=== PATIENT | female | born 1985 | race Caucasian/White ===

== ENCOUNTER 2016-07-04 06:13 | Inpatient (IN) | payer MEDICAID ==
[2016-07-04] MEDS ORDERED: RINGERS SOLUTION,LACTATED 1,000 ML IV ONE (06:24)
[2016-07-04] MEDS ORDERED: RINGERS SOLUTION,LACTATED 1,000 ML IV PRN (06:24)
[2016-07-04] MEDS ORDERED: MISOPROSTOL 0.2 MG TABLET ONE (06:37)
[2016-07-04] MEDS ORDERED: LIDOCAINE 1% INJ-PF (10 MG/ML) 30 ML SDV ONE (06:37)
[2016-07-04] MEDS ORDERED: OXYTOCIN/NORMAL SALINE 20 UNIT/1,000 ML RTUINJ ONE (06:37)
[2016-07-04 06:39] LABS: APPEARANCE,URINE CLOUDY; BILIRUBIN,URINE NEGATIVE (NEGATIVE); GLUCOSE, URINE NEGATIVE (NEGATIVE); KETONES,URINE NEGATIVE (NEGATIVE); LEUKOCYTE ESTERASE,URINE TRACE (NEGATIVE); NITRITE,URINE NEGATIVE (NEGATIVE); PROTEIN,URINE 30 mg/dL (NEGATIVE); URINE SPECIFIC GRAVITY 1.015; UROBILINOGEN,URINE NEGATIVE mg/dL (<2.0)
[2016-07-04 06:51] LABS: ABSOLUTE BASOPHILS # (AUTO) 0.1 10^3/uL (0.0-0.2); ABSOLUTE EOSINOPHILS # (AUTO) 0.2 10^3/uL (0.0-0.6); ABSOLUTE LYMPHOCYTES (AUTO) 2.1 10^3/uL (0.5-4.7); ABSOLUTE NEUT (AUTO) 8.3 10^3/uL (1.7-8.2); EOSINOPHILS % (AUTO) 1.8 % (0-6); HEMATOCRIT 37.4 % (36.0-47.0); HEMOGLOBIN 12.5 g/dL (12.0-15.5); HGB HCT DIFFERENCE 0.1; LYMPHOCYTES % (AUTO) 17.8 % (13-45); MEAN CORPUSCULAR HEMOGLOBIN 27.9 pg (27.0-33.4); MEAN CORPUSCULAR HGB CONC 33.4 g/dL (32.0-36.0); MEAN CORPUSCULAR VOLUME 84 fl (80-97); MONOCYTES % (AUTO) 8.7 % (3-13); RED BLOOD COUNT 4.48 10^6/uL (3.72-5.28); RED CELL DISTRIBUTION WIDTH 14.6 % (11.5-14.0); SEGMENTED NEUTROPHILS % (AUTO) 70.7 % (42-78); WHITE BLOOD COUNT 11.8 10^3/uL (4.0-10.5)
[2016-07-04 06:56] LABS: URINE BARBITURATES SCREEN NEGATIVE; URINE METHADONE SCREEN NEGATIVE; URINE OPIATES LOW NEGATIVE; URINE PHENCYCLIDINE SCREEN NEGATIVE
[2016-07-04] MEDS ORDERED: DIPH/PERTUSS(ACELL)/TETANUS VAC/PF 0.5 ML SYR (>=10YO) IM PRN (07:01)
[2016-07-04] MEDS ORDERED: BENZOCAINE/MENTHOL AEROSOL SPRAY 56 ML TOP PRN (07:01)
[2016-07-04] MEDS ORDERED: ZOLPIDEM TARTRATE 5 MG TABLET PO PRN (07:01)
[2016-07-04] MEDS ORDERED: OXYTOCIN/NORMAL SALINE 1,000 ML IV PRN (07:01)
[2016-07-04] MEDS ORDERED: ACETAMINOPHEN WITH CODEINE #3 TABLET PO PRN ×2 (07:01)
[2016-07-04] MEDS ORDERED: DIBUCAINE 1% OINTMENT 28 GM TP PRN (07:01)
[2016-07-04] MEDS ORDERED: MEASLES,MUMPS&RUBELLA VACC/PF 0.5 ML VIAL SUBCUT PRN (07:01)
--- NOTE | 2016-07-04 08:00 | L&D Flow Sheet ---
LD Flowsheet Datetime Report Generated by CPN: 07/04/2016 08:00 Datetime: 07/04/2016 07:44 NBP Sys/Naomi/Mean (mmHg): 107 (QS system process) : 57 (QS system process) : 77 (QS system process) Pulse: 69 (QS system process) Datetime: 07/04/2016 07:30 Respirations: 16 (Rolando Kent, RN) Temperature (F): 97.8 (Rolando Guofleet, RN) Temperature (C): 36.6 (QS system process) Pain Presence: None/Denies (Rolando Heidy, RN) Datetime: 07/04/2016 07:29 NBP Sys/Naomi/Mean (mmHg): 108 (QS system process) : 67 (QS system process) : 80 (QS system process) Pulse: 75 (QS system process) Datetime: 07/04/2016 07:14 NBP Sys/Naomi/Mean (mmHg): 111 (QS system process) : 73 (QS system process) : 88 (QS system process) Pulse: 71 (QS system process) Datetime: 07/04/2016 07:00 Vital Signs Stage of : Recovery (Crystal Blacksburg, RN) Pain Pain Scale: 3 (Crystal Blacksburg, RN) Pain Presence: Constant (Melba Acevesergrass, RN) Pain Type: Sharp; Contraction; Stabbing; Pressure (Crystal Scarlett, RN) Pain Location: Abdomen; Perineum (Crystal Blacksburg, RN) Pain Goal: 1 (Crystal Scarlett, RN) Pain Relief Measures: Comfort Measures (Crystal Blacksburg, RN) Datetime: 07/04/2016 06:52 NBP Sys/Naomi/Mean (mmHg): 100 (QS system process) : 66 (QS system process) : 77 (QS system process) Pulse: 74 (QS system process) Datetime: 07/04/2016 06:46 Uterine Activity Monitor Mode: External; Palpation (Ivanna Lattibeaudeir, RN) Frequency (min): 1-2 (Ivanna Lattibeaudeir, RN) Quality: Moderate to Strong (Ivanna Lattibeaudeir, RN) Duration (sec): 70-110 (Ivanna Lattibeaudeir, RN) Resting Tone (Palpate): Relaxed (Ivanna Lattibeaudeir, RN) Assessment A Monitor Mode: External US (Ivanna Lattibeaudeir, RN) FHR Baseline Rate : 135 (Ivanna Lattibeaudeir, RN) Variability: Moderate 6-25 bpm (Ivanna Lattibeaudeir, RN) Accelerations: 10X10 (Ivanna Lattibeaudeir, RN) Stage 2 Stage 2 Comments: of viable female . (Ivanna Lattibeaudeir, RN) Datetime: 07/04/2016 06:34 Vaginal Exam Dilatation (cm): 10.0 (Melba Pantoja, AMARI) Effacement (%): 100 (Melba Pantoja RN) Station: 1 (Mleba Pantoja RN) Exam by: Danitza Pantoja RN (Melba Pantoja RN) Communication Communication: RN at Bedside; RN Reviewed Strip; Call/Page Placed to Provider (Melba Pantoja RN) Provider Notified (Name): Notified Dr. Escobar of pt pushing (Melba Pantoja RN) Datetime: 07/04/2016 06:31 Membranes Ruptured Date/Time: 07/04/2016 05:00 (Melba Pantoja RN) Membranes Rupture Method: Spontaneous (Melba Pantoja RN) Amniotic Fluid Color: Clear (Crystal Blacksburg, RN) Amniotic Fluid Amount: Small (Crystal Blacksburg, RN) Amniotic Fluid Odor: Normal (Ivanna Vicente, RN) Datetime: 07/04/2016 06:30 Uterine Activity Monitor Mode: Palpation (Ivanna Morantibeaudeir, RN) Quality: Moderate to Strong (Ivanna Vicente, RN) Resting Tone (Palpate): Relaxed (Ivanna Lattibeacaryir, RN) Contraction Comments: unable to determine (Ivanna Morantibeaudeir, RN) Assessment A Monitor Mode: External US (Ivanna Lattibeaudeir, RN) FHR Baseline Rate : 135 (Ivanna Lattibeaudeir, RN) Variability: Moderate 6-25 bpm (Ivanna Lattibeaudeir, RN) Accelerations: 10X10 (Ivanna Lattibeaudeir, RN) Datetime: 07/04/2016 06:20 Vaginal Exam Dilatation (cm): 6.5 (Melba Pantoja RN) Effacement (%): 90 (Melba Pantoja, RN) Station: -1 (Melba Pantoja, RN) Exam by: Danitza Pantoja RN (Melba Pantoja, RN) Vaginal Bleeding: None (Melba Pantoja RN) Cervix, Consistency: Soft (Melba Acevesergrass, RN) Cervix, Position: Anterior (Crystal Blacksburg, RN) Datetime: 07/04/2016 06:13 Frequency (min): Reported contractions every minute (Crystal Scarlett, RN) Pain Pain Scale: 5 (Crystal Scarlett, RN) Pain Presence: Constant (Crystal Scarlett, RN) Pain Type: Contraction (Crystal Scarlett, RN) Pain Location: Abdomen; Perineum (Crystal Scarlett, RN) Pain Goal: 1 (Crystal Scarlett, RN) Pain Relief Measures: Comfort Measures (Crystal Scarlett, RN) Pain Coping: Requesting Pain Medication or Epidural; Crying (Crystal Blacksburg, RN) Vaginal Bleeding: None (Crystal Scarlett, RN) Maternal Assessment Level of Consciousness: Fully Conscious (Melba Pantoja RN)
--- NOTE | 2016-07-04 08:57 | Admission Physical ---
Datetime Report Generated by CPN: 07/04/2016 08:56 CURRENT ADMISSION Chief Complaint: Uterine Contractions; Suspected Ruptured Membranes Indication for Induction: Not Applicable Admit Plan: Admit to Unit; Initiate Labor Protocol ALLERGIES Medication Allergies: No Medication Allergies: No Known Allergies (07/04/2016) Latex: No Latex Allergies OBSTETRICAL HISTORY EDC: 07/05/2016 00:00 : 6 Para: 3 SAB: 1 IAB: 1 Livin Gestational Diabetes: No Rh Sensitization: No Incompetent Cervix: No ROXANNE: No Infertility: No ART Treatment: No Uterine Anomaly: No IUGR: No Hx Previous C/S: No Macrosomia: No Hx Loss/Stillborn: No PIH: No Hx : No Placenta Previa/Abruption: No Depression/PP Depression: No PTL/PROM: No Post Hemorrhage: No Current Procedures: Ultrasound; NST Obstetrical History Comments: G1 05/07/2000 40W 7.2# F CA G2 04/2001 10-12 wks SAB D_C G3 01/20/2003 40W 8.0# F Epidural CA G4 02/2009 6wk EAB G5 12/29/2009 40.5W 8.6# F Epidural NHCL G6 Current SEE RECORDS Alcohol: No Marijuana : No Cocaine: No Other Illicit Drugs: No Cigarettes: Former Smoker. 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 INFECTIOUS HISTORY Gonorrhea: No Genital Herpes: Yes Chlamydia: No Tuberculosis: No Syphilis: No Hepatitis: No HIV/AIDS Exposure: No Rash or Viral Illness: No HPV: No Infectious History Comments: LEEP 2000 PHYSICAL EXAM General: Normal HEENT: Normal Neurologic: Normal Thyroid: Normal Heart: Normal Lungs: Normal Breast: Normal Back: Normal Abdomen: Normal Genitourinary Exam: Normal Extremities: Normal DTRs: Normal Pelvic Type: Adequate Vital Signs: Reviewed VAGINAL EXAM Dilatation: 10 Effacement: 100 Station: 3 MEMBRANES Pooling: Positive FETUS A EGA: 39.6 Monitoring: External US FHR- Baseline: 130 Variability: Moderate 6-25bpm Accelerations: 15X15 Decelerations: Early FHR Category: Category II Estimated Weight (gm): 4000 Presentation: Vertex Admit Comment: delivered soon after arrival to floor PLANS FOR LABOR AND DELIVERY Labor and Delivery: None Pain Management: Natural Feeding Preference: Breast Benefit of Breast Feed Discussed: Yes Circumcision: N/A INFORMED CONSENT Signature: with User ID: [email or web address]
[2016-07-04] MEDS: PRENATAL VITAMIN W-O CA NO5/FE FUMARATE/FA CAPSULE PO SCH (10:21)
[2016-07-04] MEDS: FERROUS SULFATE 325 MG TABLET PO SCH ×2 (10:21→17:19)
[2016-07-04] MEDS: DOCUSATE SODIUM 100 MG CAPSULE PO SCH ×2 (10:21→17:19)
[2016-07-04] MEDS: SENNOSIDES/DOCUSATE 8.6-50 MG 1 EACH TABLET PO SCH (10:21)
[2016-07-04] MEDS: IBUPROFEN 800 MG TABLET PO SCH ×2 (14:11→21:33)
--- NOTE | 2016-07-04 19:01 | L&D Flow Sheet ---
LD Flowsheet Datetime Report Generated by CPN: 07/04/2016 19:00 Datetime: 07/04/2016 08:45 Stage of : Recovery (Rolando Heidy, RN) Respirations: 16 (Rolando Heidy, RN) Pain Presence: None/Denies (Rolando Heidy, RN) Datetime: 07/04/2016 08:30 Stage of : Recovery (Rolando Heidy, RN) Respirations: 18 (Rolando Heidy, RN) Pain Presence: None/Denies (Rolando Heidy, RN) Datetime: 07/04/2016 08:29 NBP Sys/Naomi/Mean (mmHg): 113 (QS system process) : 62 (QS system process) : 82 (QS system process) Pulse: 73 (QS system process) Datetime: 07/04/2016 08:15 Stage of : Recovery (Rolando Heidy, RN) NBP Sys/Naomi/Mean (mmHg): 111 (QS system process) : 59 (QS system process) : 81 (QS system process) Pulse: 64 (QS system process) Respirations: 16 (Rolando Heidy, RN) Pain Presence: None/Denies (Rolando Heidy, RN) Datetime: 07/04/2016 08:00 Stage of : Recovery (Rolando Heidy, RN) Pain Presence: None/Denies (Rolando Heiyd, RN) Datetime: 07/04/2016 07:45 Stage of : Recovery (Rolando Heidy, RN) Respirations: 16 (Rolando Heidy, RN) Pain Presence: None/Denies (Rolando Heidy, RN) Datetime: 07/04/2016 07:44 NBP Sys/Naomi/Mean (mmHg): 107 (QS system process) : 57 (QS system process) : 77 (QS system process) Pulse: 69 (QS system process) Datetime: 07/04/2016 07:30 Respirations: 16 (Rolando Heidy, RN) Temperature (F): 97.8 (Rolando Heidy, RN) Temperature (C): 36.6 (QS system process) Pain Presence: None/Denies (Rolando Heidy, RN) Datetime: 07/04/2016 07:29 NBP Sys/Naomi/Mean (mmHg): 108 (QS system process) : 67 (QS system process) : 80 (QS system process) Pulse: 75 (QS system process) Datetime: 07/04/2016 07:14 NBP Sys/Naomi/Mean (mmHg): 111 (QS system process) : 73 (QS system process) : 88 (QS system process) Pulse: 71 (QS system process) Datetime: 07/04/2016 07:00 Stage of : Recovery (Melba Pantoja RN) Pain Scale: 3 (Melba Pantoja RN) Pain Presence: Constant (Melba Pantoja RN) Pain Type: Sharp; Contraction; Stabbing; Pressure (Melba Pantoja RN) Pain Location: Abdomen; Perineum (Melba Pantoja RN) Pain Goal: 1 (Melba Pantoja RN) Pain Relief Measures: Comfort Measures (Melba Pantoja RN)
--- NOTE | 2016-07-05 06:01 | L&D Current Admission ---
Current Admit Datetime Report Generated by CPN: 07/05/2016 06:00 ADMISSION INFORMATION Chief Complaint: Contractions; Suspected Rupture of Membranes (07/04/2016 06:13:RAMU Overton
--- NOTE | 2016-07-05 06:01 | L&D General Admission ---
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: [employer] (07/04/2016 06:31:Rolando Moody RN) Month of 1st Visit: November 2015 (07/04/2016 06:31:Rolando Moody RN) Adequate Care: Yes (07/04/2016 06:31:Rolando Moody RN) Prepregnancy Weight (lb): 128 (07/04/2016 06:31:Rolando Moody RN) Prepregnancy Weight (kg): 58.2 (07/04/2016 06:31:QS system process) Height (in): 60 (07/04/2016 07:46:QS system process) ALLERGIES Medication Allergy: No (07/04/2016 06:31:Melba Pantoja RN) Medication Allergies: No Known Allergies (07/04/2016) (07/04/2016 06:30:QS system process) Latex Allergy: No Latex Allergies (07/04/2016 06:31:Rolando Moody RN) COMMUNICATION Primary Language: Sami (07/04/2016 06:31:Rolando Moody RN) Communication Barrier(s): None (07/04/2016 06:31:Rolando Moody RN) DEMOGRAPHICS Address: [address] [place] [id number] (07/04/2016 06:13:QS system process) Zipcode: [phone] (07/04/2016 06:13:QS system process) Home (07/04/2016 06:13:QS system process) N: [phone] (07/04/2016 06:13:QS system process) Next of Kin Name: KRYSTAL WEIR (07/04/2016 06:13:QS system process) Next of Kin (07/04/2016 06:13:QS system process) Next of Kin Relationship: OR (07/04/2016 06:13:QS system process) Date of : 1985 (07/04/2016 06:13:QS system process) Marital Status: Single (07/04/2016 06:13:QS system process) Sex: Female (07/04/2016 06:13:QS system process) Race: (07/04/2016 06:13:QS system process) Ethnicity: Non- or (07/04/2016 06:13:QS system process) Jehovah'S Witness: None (07/04/2016 06:13:QS system process) DRUG AND ALCOHOL USE Alcohol: No (07/04/2016 06:31:Rolando Moody RN) Cigarettes: Former Smoker. [id number] (07/04/2016 06:31:Rolando Moody RN) Marijuana: No (07/04/2016 06:31:Rolando Moody RN) Cocaine: No (07/04/2016 06:31:Rolando Moody RN) Other Illicit Drugs: No (07/04/2016 06:31:Rolando Moody RN) VACCINE HISTORY Influenza Vaccine: No (07/04/2016 06:31:Rolando Moody RN) Influenza Date: Refused (07/04/2016 06:31:Rolando Moody RN) Pneumococcal Vaccine: Uncertain (07/04/2016 06:31:Rolando Moody RN) Tetanus Vaccine: Uncertain (07/04/2016 06:31:Rolando Moody RN) Tdap Vaccine: No (07/04/2016 06:31:Rolando Moody RN) Tdap Date: Refused (07/04/2016 06:31:Rolando Moody RN) Hepatitis B Vaccine: Yes (07/04/2016 06:31:Rolando Moody RN) 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 Investigator: [facility] (07/04/2016 06:31:Melba Pantoja RN) Feeding Preference: Breast (07/04/2016 06:31:Melba Pantoja RN) Benefit of Breast Feed Discussed: Yes (07/04/2016 06:31:Melba Pantoja RN) Circumcision: N/A (07/04/2016 06:31:Rolando Moody RN) Classes Attended: No (07/04/2016 06:31:Rolando Moody RN) Tubal Ligation: No (07/04/2016 06:31:Rolando Moody RN) Tubal Authorization Signed: N/A (07/04/2016 06:31:Rolando Moody RN) Consent: N/A (07/04/2016 06:31:Rolando Moody RN) Consent Signed: N/A (07/04/2016 06:31:Rolando Moody RN) Pain Management Plans: Natural (07/04/2016 06:31:Rolando Moody RN) Plans for Labor and Delivery: None (07/04/2016 06:31:Rolando Moody RN) Support Person: (07/04/2016 06:31:Rolando Moody RN) Cultural/Spritual Practice: No (07/04/2016 06:31:Rolando Moody RN) Spir/Cult Dietary Needs: No (07/04/2016 06:31:Rolando Moody RN) LIVING SITUATION/DISCHARGE PLAN Living Arrangements: House (07/04/2016 06:31:Rolando Moody RN) Adequate Access to:: Electric; Heat; Refrigeration; Plumbing/Running water; Phone; Transportation (07/04/2016 06:31:Rolando Moody RN) 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5 (07/04/2016 06:37:QS system process) Hematocrit: 37.4 (07/04/2016 06:37:QS system process) MCV: 84 (07/04/2016 06:37:QS system process) Group Beta Strep: Negative (07/04/2016 06:31:Melba Pantoja RN) Gonorrhea: Negative (07/04/2016 06:31:Melba Pantoja RN) Chlamydia: Negative (07/04/2016 06:31:Melba Pantoja RN) RPR/VDRL: Nonreactive (07/04/2016 06:31:Melba Pantoja RN) Hepatitis B: Negative (07/04/2016 06:31:Melba Pantoja RN) Rubella: Immune (07/04/2016 06:31:Melba Pantoja RN) OB/PREVIOUS HISTORY Previous Procedures: Ultrasound (07/04/2016 06:31:Rolando Moody RN) Current Procedures: Ultrasound; NST (07/04/2016 06:31:Rolando Moody RN) History of Previous : No (07/04/2016 06:31:Rolando Moody RN) History of Gestational Diabetes: No (07/04/2016 06:31:Rolando Moody RN) History of PIH: No (07/04/2016 06:31:Rolando Moody RN) History of Incompetent Cervix: No (07/04/2016 06:31:Rolando Moody RN) History of Placenta Previa/Abrup: No (07/04/2016 06:31:Rolando Moody RN) History of Macrosomia: No (07/04/2016 06:31:Rolando Moody RN) History of IUGR: No (07/04/2016 06:31:Rolando Moody RN) History of Hemorrhage: No (07/04/2016 06:31:Rolando Moody RN) History of Loss/Stillborn: No (07/04/2016 06:31:Rolando Moody RN) History of : No (07/04/2016 06:31:Rolando Moody RN) History of D (Rh) Sensitization: No (07/04/2016 06:31:Rolando Moody RN) History Recurrent Loss/Stillborn: No (07/04/2016 06:31:Rolando Moody RN) History Depression/PP Depression: No (07/04/2016 06:31:Rolando Moody RN) History of Uterine Anomaly/ROXANNE: No (07/04/2016 06:31:Rolando Moody RN) History of Infertility: No (07/04/2016 06:31:Rolando Moody RN) History of ART Treatment: No (07/04/2016 06:31:Rolando Moody RN) History of ROXANNE: No (07/04/2016 06:31:Rolando Moody RN) Comments Obstetrical History: G1 05/07/2000 40W 7.2# F CA G2 04/2001 10-12 wks SAB D_C G3 01/20/2003 40W 8.0# F Epidural CA G4 02/2009 6wk EAB G5 12/29/2009 40.5W 8.6# F Epidural NHCL G6 Current (07/04/2016 06:31:Rolando Moody RN) MEDICAL HISTORY Med Hx Diabetes: No (07/04/2016 06:31:Rolando Moody RN) Med Hx Hypertension: No (07/04/2016 06:31:Rolando Moody RN) Med Hx Heart Disease: No (07/04/2016 06:31:Rolando Moody RN) Med Hx Autoimmune Disorder: No (07/04/2016 06:31:Rolando Moody RN) Med Hx Kidney Disease/UTI: No (07/04/2016 06:31:Rolando Moody RN) Med Hx Neurologic/Epilepsy: No (07/04/2016 06:31:Rolando Moody RN) Med Hx Psychiatric Disorders: No (07/04/2016 06:31:Rolando Moody RN) Med Hx Hepatitis/Liver Disease: No (07/04/2016 06:31:Rolando Moody RN) Med Hx Varicosities/Phlebitis: No (07/04/2016 06:31:Rolando Moody RN) Med Hx Thyroid Dysfunction: No (07/04/2016 06:31:Rolando Moody RN) Med Hx Trauma/Violence: No (07/04/2016 06:31:Rolando Moody RN) Med Hx Blood Transfusion: No (07/04/2016 06:31:Rolando Moody RN) Med Hx Pulmonary (Asthma,TB): No (07/04/2016 06:31:Rolando Moody RN) Med Hx Breast: No (07/04/2016 06:31:Rolando Moody RN) Med Hx 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 (07/04/2016 06:31:Rolando Moody RN) INFECTIOUS HISTORY Inf Hx Gonorrhea: No (07/04/2016 06:31:Rolando Moody RN) Inf Hx Chlamydia: No (07/04/2016 06:31:Rolando Moody RN) Inf Hx Syphilis: No (07/04/2016 06:31:Rolando Moody RN) Inf Hx HIV/AIDS: No (07/04/2016 06:31:Rolando Moody RN) Inf Hx Human Papilloma Virus: No (07/04/2016 06:31:Rolando Moody RN) Inf Hx Pt/Partner Genital Herpes: Yes (07/04/2016 06:31:Rolando Moody RN) Inf Hx Tuberculosis/Exposure: No (07/04/2016 06:31:Rolando Moody RN) Inf Hx Hepatitis B,C: No (07/04/2016 06:31:Rolando Moody RN) Inf Hx Rash or Viral Illness: No (07/04/2016 06:31:Rolando Moody RN) Details of Infectious Hx: LEEP 1999 (07/04/2016 06:31:Rolando Moody RN) GENETIC HISTORY Gen Hx Age >=35 at EDITA: No (07/04/2016 06:31:Rolando Moody RN) Gen Hx Thalassemia: No (07/04/2016 06:31:Rolando Moody RN) Gen Hx Congenital Heart Defect: No (07/04/2016 06:31:Rolando Moody RN) Gen Hx Neural Tube Defect: No (07/04/2016 06:31:Rolando Moody RN) Gen Hx Down's Syndrome: No (07/04/2016 06:31:Rolando Moody RN) Gen Hx Rj-Sachs: No (07/04/2016 06:31:Rolando Moody RN) Gen Hx Taylor: No (07/04/2016 06:31:Rolando Moody RN) Gen Hx Familial Dysautonomia: No (07/04/2016 06:31:Rolando Moody RN) Gen Hx Sickle Cell Disease/Trait: No (07/04/2016 06:31:Rolando Moody RN) Gen Hx Hemophilia/Blood Disorder: No (07/04/2016 06:31:Rolando Moody RN) Gen Hx Muscular Dystrophy: No (07/04/2016 06:31:Rolando Moody RN) Gen Hx Cystic Fibrosis: No (07/04/2016 06:31:Rolando Moody RN) Gen Hx Huntingtons Chorea: No (07/04/2016 06:31:Rolando Moody RN) Gen Hx Mental Retardation/Autism: No (07/04/2016 06:31:Rolando Moody RN) Gen Hx Tested for Fragile X: No (07/04/2016 06:31:Rolando Moody RN) Gen Hx Other Inher/Chromosomal: No (07/04/2016 06:31:Rolando Moody RN) Gen Hx Maternal Metabolic DO: No (07/04/2016 06:31:Rolando Moody RN) Gen Hx Pt Father or FOB Defect: No (07/04/2016 06:31:Rolando Moody RN) Gen Hx Other Genetic History: No (07/04/2016 06:31:Rolando Moody RN) Gen Hx Drugs/Meds since LMP: No (07/04/2016 06:31:Rolando Moody RN)
[2016-07-05] MEDS: IBUPROFEN 800 MG TABLET PO SCH ×2 (06:12→14:45)
[2016-07-05 07:27] LABS: HEMATOCRIT 36.8 % (36.0-47.0); HEMOGLOBIN 12.2 g/dL (12.0-15.5); HGB HCT DIFFERENCE -0.2; MEAN CORPUSCULAR HEMOGLOBIN 28.1 pg (27.0-33.4); MEAN CORPUSCULAR HGB CONC 33.1 g/dL (32.0-36.0); MEAN CORPUSCULAR VOLUME 85 fl (80-97); RED BLOOD COUNT 4.33 10^6/uL (3.72-5.28); RED CELL DISTRIBUTION WIDTH 15.1 % (11.5-14.0); WHITE BLOOD COUNT 14.5 10^3/uL (4.0-10.5)
[2016-07-05] MEDS: DOCUSATE SODIUM 100 MG CAPSULE PO SCH ×2 (09:57→17:39)
[2016-07-05] MEDS: PRENATAL VITAMIN W-O CA NO5/FE FUMARATE/FA CAPSULE PO SCH (09:57)
[2016-07-05] MEDS: FERROUS SULFATE 325 MG TABLET PO SCH ×2 (09:57→17:39)
[2016-07-05] MEDS: SENNOSIDES/DOCUSATE 8.6-50 MG 1 EACH TABLET PO SCH (09:58)
--- NOTE | 2016-07-05 10:54 | PDOC PROGRESS REPORT ---
Subjective-OB Subjective: Post Delivery Day: 31 year old. Denies any needs at this time. Pt doing well, no complaints. She reports minimal bleeding, regular diet, voiding well. well, wants to go home today to take care of other children. Physical Exam (OB) Vital Signs: Temp Pulse Resp BP Pulse Ox 98.0 F 62 20 135/68 H 100 07/04/16 19:42 07/04/16 19:42 07/04/16 19:42 07/04/16 19:42 07/04/16 19:42 Intake & Output 07/04/16 07/05/16 07/06/16 06:59 06:59 06:59 Weight 70.85 kg - PIH/Pre-Eclampsia Clonus: Negative Headache: Absent Epigastric Pain: No Visual Changes: No - Lochia Lochia Amount: Scant < 10 ml Lochia Color: Rubra/Red - Abdomen Description: Soft, Round Hernia Present: No Fundal Description: Firm Fundal Height: u/u - u/2 Objective-Diagnostic Laboratory: 07/05/16 06:44 07/05/16 06:44 WBC 14.5 H RBC 4.33 Hgb 12.2 Hct 36.8 MCV 85 MCH 28.1 MCHC 33.1 RDW 15.1 H Plt Count 168 Assessment and Plan(PN) - Assessment and Plan (1) Vaginal delivery Is this a current diagnosis for this admission?: Yes - Time Spent with Patient Time with patient: Less than 15 minutes Medications reviewed and adjusted accordingly: Yes - Disposition Anticipated Discharge: Home Within: within 24 hours
--- NOTE | 2016-07-05 10:57 | PDOC DISCHARGE SUMMARY ---
Final Diagnosis Discharge Date: 07/05/16 - Final Diagnosis (1) Vaginal delivery Is this a current diagnosis for this admission?: Yes Discharge Data - Discharge Medication Home Medications: Valacyclovir HCl [Valtrex 500 mg Tablet] 2 tab PO DAILY 07/04/16 Reason(s) for Admission: Onset of Labor Procedures: NST Intrapartum Procedure(s): Spontaneous Vaginal Delivery - Diagnosis Test Laboratory: Temp Pulse Resp BP Pulse Ox 98.0 F 62 20 135/68 H 100 07/04/16 19:42 07/04/16 19:42 07/04/16 19:42 07/04/16 19:42 07/04/16 19:42 07/04/16 07/04/16 07/05/16 06:15 06:37 06:44 RBC 4.48 4.33 Hgb 12.5 12.2 Hct 37.4 36.8 Urine Opiates Screen NEGATIVE - Discharge information/Instructions Discharge Activity: Balance Activity w/Rest, Pelvic Rest Discharge Diet: Regular Disposition: HOME, SELF-CARE Follow up with: [facility] in: 4, Weeks
[2016-07-05 16:29] VITALS: BP 123/72
--- NOTE | 2016-07-16 12:04 | Delivery Summary ---
Del Sum A-C Datetime Report Generated by CPN: 07/16/2016 12:04 ADMISSION DATA Chief Complaint: Uterine Contractions; Suspected Ruptured Membranes Indication for Induction: Not Applicable Admission Impression: Term, Intrauterine ; Active Labor Admit Provider Comments: delivered soon after arrival to floor DELIVERY PERSONNEL Delivery Doctor:: Azalea Escobar MD Labor and Delivery Nurse:: Melba Pantoja RN Labor and Delivery Nurse:: Ivanna Vicente RN Coal Handling Supervisor/COMPUTER SYSTEMS SOFTWARE ARCHITECT: Suman Ertel, COMPUTER SYSTEMS SOFTWARE ARCHITECT MATERNAL INFORMATION Delivery Anesthesia: None Medications After Delivery: Pitocin Drip 20 Units/1000ml NSS Estimated Blood Loss (ml): 250 Maternal Complications: Precipitous Labor (<3hrs) LABOR SUMMARY EDC: 07/05/2016 00:00 No. Babies in Womb: 1 Attempted: No Labor Anesthesia: None LABOR INFORMATION Reason for Induction: Not Applicable Onset of Labor: 07/04/2016 05:00 Complete Dilatation: 07/04/2016 06:34 Oxytocin: N/A Group B Beta Strep: Negative Antibiotics # of Doses: 0 Steroids Given: None Reason Steroids Not Administered: Not Applicable MEMBRANES Membranes Rupture Method: Spontaneous Rupture of Membranes: 07/04/2016 05:00 Length of Rupture (hr): 1.77 Amniotic Fluid Color: Clear Amniotic Fluid Amount: Small Amniotic Fluid Odor: Normal STAGES OF LABOR Stage 1 hr: 1 Stage 1 min: 34 Stage 2 hr: 0 Stage 2 min: 12 Stage 3 hr: 0 Stage 3 min: 6 Total Time in Labor hr: 1 Total Time in Labor min: 52 VAGINAL DELIVERY Episiotomy: None Laceration Extension: N/A Laceration Type: None Laceration Repair: Not Applicable Sponge Count Correct: N/A Sharps Count Correct: N/A CSECTION DELIVERY Primary Indication: N/A Secondary Indication: N/A CSection Incidence: N/A Labor: N/A Elective: N/A CSection Incision: N/A BABY A INFORMATION Infant Delivery Date/Time: 07/04/2016 06:46 Method of Delivery: Vaginal Born in Route : No : N/A Forceps: N/A Vacuum Extraction: N/A Shoulder Dystocia : No PRESENTATION/POSITION BABY A Presentation: Cephalic Cephalic Presentation: Vertex Vertex Position: Left Occipital Anterior Breech Presentation: N/A PLACENTA INFORMATION BABY A Placenta Delivery Time : 07/04/2016 06:52 Placenta Method of Delivery: Spontaneous Placenta Status: Delivered SCORES BABY A Heart Rate 1 min: >100 bpm Resp Effort 1 min: Good Cry Reflex Irritability 1 min: Cough or Sneeze or Pulls Away Muscle Tone 1 min: Active Motion Color 1 min: Blue/Pale Resuscitation Effort 1 min: N/A SCORE 1 MIN: 8 Heart Rate 5 min: >100 bpm Resp Effort 5 min: Good Cry Reflex Irritability 5 min: Cough or Sneeze or Pulls Away Muscle Tone 5 min: Active Motion Color 5 min: Body [place], Extremities Blue Resuscitation Effort 5 min: N/A SCORE 5 MIN: 9 INFORMATION BABY A Gestational Age at Delivery: 39.6 Gestational Status: Full Term- 39- 40.6 Weeks Outcome : Liveborn Infant Condition : Stable Infant Sex: Female IDENTIFICATION BABY A Verification Date/Time: 07/04/2016 07:10 ID Band Number: [id number] Mother's Name Verified: Yes RN Verifying : Danitza Pantoja, RN Additional Verifying Personnel: SKaryn Vicente, RN WEIGHT/LENGTH BABY A Infant Birthweight (gm): 4190 Weight (lb): 9 Weight (oz): 4 Infant Length (in): 21.00 Length (cm): 53.34 CORD INFORMATION BABY A No. Cord Vessels: 3 Nuchal Cord : Around Neck x1, Tight Cord Blood Taken: Yes-For Eval (Mom's Blood Type - or O+) Infant Suction: None ASSESSMENT BABY A Infant Complications: None Physical Findings at Delivery: Within Normal Limits Respirations: Appears Normal Skin to Skin: Yes Skin to Skin Time (min): 60 Optometric Coordinator/ALS Called : No Care By: Amaury Vicente RN Transferred To: Remains with Mother
== END 2016-07-05 18:45 | disposition home or self-care (01) | DRG 774 ==
LOC: LC 06:13 → LR 06:29 → 2N 08:54
PROVIDERS: ADMIT Obstetrics & Gynecology; ATTEND Obstetrics & Gynecology
PROC: 10E0XZZ Delivery of Products of Conception, External Approach (ICD-10-PCS; principal; 2016-07-04)
PROC: 4A1HXCZ Monitoring of Products of Conception, Cardiac Rate, External Approach (ICD-10-PCS; 2016-07-04)
DX: O69.1XX0 Labor and delivery complicated by cord around neck, with compression, not applicable or unspecified (principal); O98.32 Other infections with a predominantly sexual mode of transmission complicating childbirth; O62.3 Precipitate labor; A60.04 Herpesviral vulvovaginitis; Z87.891 Personal history of nicotine dependence; Z3A.39 39 weeks gestation of pregnancy; Z37.0 Single live birth
CPT/HCPCS: 36415; 80307; 81005; 85025; 85027; 86592; 86850; 86900; 86901; J2590; J3490; J7120

== ENCOUNTER 2018-06-21 17:35 | Emergency (ER) | payer SELFPAY ==
--- NOTE | 2018-06-21 17:50 | ER Document Report ---
ED Medical Screen (RME) - General Chief Complaint: Anxiety Stated Complaint: PANIC ATTACK Time Seen by Provider: 06/21/18 17:48 Primary Care Provider: HUGO ACEVEDO MD [Primary Care Provider] - Follow up as needed Mode of Arrival: Ambulatory Information source: Patient TRAVEL OUTSIDE OF THE [place] IN LAST 30 DAYS: No - HPI Patient complains to provider of: panic attack Onset: Last week - pt with h/o panic attacks with ongoing episodes for the past several days. Denies SI - Related Data Allergies/Adverse Reactions: No Known Allergies Allergy (Verified 07/04/16 07:45) Physical Exam - Vital signs Vitals: Temp Pulse Resp BP Pulse Ox 98.6 F 103 H 20 130/84 H 100 06/21/18 17:40 06/21/18 17:40 06/21/18 17:40 06/21/18 17:40 06/21/18 17:40 Course - Vital Signs Vital signs: Temp Pulse Resp BP Pulse Ox 98.6 F 103 H 20 130/84 H 100 06/21/18 17:40 06/21/18 17:40 06/21/18 17:40 06/21/18 17:40 06/21/18 17:40 Doctor's Discharge - Discharge Referrals: HUGO ACEVEDO MD [Primary Care Provider] - Follow up as needed
[2018-06-21 18:13] LABS: ABSOLUTE BASOPHILS # (AUTO) 0.1 10^3/uL (0.0-0.2); ABSOLUTE LYMPHOCYTES (AUTO) 1.2 10^3/uL (0.5-4.7); ABSOLUTE MONOCYTES (AUTO) 0.4 10^3/uL (0.1-1.4); ABSOLUTE NEUT (AUTO) 7.1 10^3/uL (1.7-8.2); BASOPHILS % (AUTO) 0.7 % (0-2); EOSINOPHILS % (AUTO) 0.5 % (0-6); HEMATOCRIT 42.9 % (36.0-47.0); HEMOGLOBIN 15.1 g/dL (12.0-15.5); LYMPHOCYTES % (AUTO) 13.8 % (13-45); MEAN CORPUSCULAR HEMOGLOBIN 31.2 pg (27.0-33.4); MEAN CORPUSCULAR HGB CONC 35.2 g/dL (32.0-36.0); MEAN CORPUSCULAR VOLUME 89 fl (80-97); MONOCYTES % (AUTO) 5.1 % (3-13); PLATELET COUNT 247 10^3/uL (150-450); RED BLOOD COUNT 4.85 10^6/uL (3.72-5.28); RED CELL DISTRIBUTION WIDTH 13.1 % (11.5-14.0); SEGMENTED NEUTROPHILS % (AUTO) 79.9 % (42-78); TOTAL CELLS COUNTED % (AUTO) 100 %; WHITE BLOOD COUNT 8.8 10^3/uL (4.0-10.5)
[2018-06-21 18:25] LABS: ALANINE AMINOTRANSFERASE 32 U/L (9-52); ALKALINE PHOSPHATASE 47 U/L (38-126); ANION GAP 10 (5-19); ASPARTATE AMINO TRANSFERASE 21 U/L (14-36); BILIRUBIN,DIRECT 0.1 mg/dL (0.0-0.4); BILIRUBIN,TOTAL 0.6 mg/dL (0.2-1.3); BLOOD UREA NITROGEN 12 mg/dL (7-20); CALCIUM 10.5 mg/dL (8.4-10.2); CARBON DIOXIDE 27 mmol/L (22-30); CHLORIDE 106 mmol/L (98-107); GLUCOSE 113 mg/dL (75-110); POTASSIUM 4.2 mmol/L (3.6-5.0); SODIUM 142.8 mmol/L (137-145); TOTAL PROTEIN 7.7 g/dL (6.3-8.2)
[2018-06-21 18:27] LABS: ALCOHOL < 10 mg/dL (NONE DETECTED)
[2018-06-21 18:38] LABS: APPEARANCE,URINE CLEAR; BILIRUBIN,URINE NEGATIVE (NEGATIVE); COLOR,URINE YELLOW; GLUCOSE, URINE NEGATIVE (NEGATIVE); KETONES,URINE NEGATIVE (NEGATIVE); LEUKOCYTE ESTERASE,URINE NEGATIVE (NEGATIVE); NITRITE,URINE NEGATIVE (NEGATIVE); PROTEIN,URINE NEGATIVE (NEGATIVE); URINE SPECIFIC GRAVITY 1.012; UROBILINOGEN,URINE NEGATIVE mg/dL (<2.0)
[2018-06-21 18:54] LABS: URINE AMPHETAMINES SCREEN NEGATIVE; URINE BARBITURATES SCREEN NEGATIVE; URINE BENZODIAZEPINES SCREEN NEGATIVE; URINE COCAINE SCREEN NEGATIVE; URINE MARIJUANA (THC) SCREEN NEGATIVE; URINE METHADONE SCREEN NEGATIVE; URINE PHENCYCLIDINE SCREEN NEGATIVE
--- NOTE | 2018-06-21 19:49 | ER Document Report ---
ED General - General Chief Complaint: Anxiety Stated Complaint: PANIC ATTACK Time Seen by Provider: 06/21/18 17:48 Primary Care Provider: HUGO ACEVEDO MD [Primary Care Provider] - Follow up as needed Mode of Arrival: Ambulatory TRAVEL OUTSIDE OF THE [place] IN LAST 30 DAYS: No - HPI Patient complains to provider of: Panic attacks off and on since Friday. Onset: Other - 6 days Onset/Duration: Intermittent Quality of pain: No pain Severity: None Associated symptoms: None Exacerbated by: Denies Relieved by: Denies Similar symptoms previously: No Recently seen / treated by doctor: No Notes: Patient is a 33-year-old female coming in today with chief complaint of intermittent panic attacks which consist of palpitations, shortness of breath, panic, fear of "I am dying". Patient has a history of anxiety that she manages without medication. Does not have a definitive trigger that seems to be making this worse. She does have a 2-month-old baby that she is breast-feeding so that limits her options for treatment. She denies suicidal and homicidal ideation - Related Data Allergies/Adverse Reactions: No Known Allergies Allergy (Verified 07/04/16 07:45) Past Medical History - General Information source: Patient - Social History Smoking Status: Former Smoker Family History: Reviewed & Not Pertinent Patient has suicidal ideation: No Patient has homicidal ideation: No Renal/ Medical History: Denies: Hx Peritoneal Dialysis Review of Systems - Review of Systems Notes: Constitutional: No fevers. No chills. EENT: No eye redness. No eye pain. No ear pain. No sore throat. Cardiovascular: No chest pain. No palpitations. Respiratory: No cough. No shortness of breath. No respiratory distress. Gastrointestinal: No abdominal pain. No nausea, vomiting, or diarrhea. Genitourinary: Atraumatic. No lesions. No pain. No discharge. Musculoskeletal: Atraumatic. No swelling. No deformities. Skin: No rash or lesions. Lymphatic: No swollen lymph nodes. Neurologic: No headache. No syncope. Psychiatric: No suicidal or homicidal ideation. Positive panic attacks Physical Exam - Vital signs Vitals: Temp Pulse Resp BP Pulse Ox 98.6 F 103 H 20 130/84 H 100 06/21/18 17:40 06/21/18 17:40 06/21/18 17:40 06/21/18 17:40 06/21/18 17:40 - Notes Notes: General: Well-developed, well-nourished. In no acute distress. Non-toxic appearing. Cardiac: Well-perfused. Regular rate and rhythm. No murmurs, rubs, or gallops. Pulmonary: No respiratory distress. No cyanosis. Bilateral lung fiels are clear to auscultation. Abdominal: Non-distended. Non-rigid. Bowels sounds are present in all four quadrants. No guarding or rebound. HEENT: Head is atraumatic. Conjunctivae not reddened. No tearing. PERRL. EOMI. Orbits atraumatic. No periorbital swelling or erythema. Oropharynx is without erythema, swelling, or exudates. Neck: Supple. No adenopathy. No meningismus. Dermatologic: Warm with good turgor. No rash. Atraumatic. Chest: Atraumatic. No chest wall tenderness to palpation. Musculoskeletal: Moves all extremities well. No range of motion deficits. no muscular or joint tenderness. No paraspinal muscle tenderness. no midline spinal tenderness or step-off. Genitourinary: Examination deferred Neurologic: No gross neurologic deficits. Psychiatric: Normal mood. No suicidal or homicidal ideation. Awake alert oriented. No depressed affect. Course - Re-evaluation Re-evalutation: 06/21/18 19:48 Patient has a normal exam. She her lab work is normal including TSH. Initially offered her some Ativan but she declined due to breast-feeding. Indicated to her that I do not think there is anything necessarily considered safe in breast- feeding moms which works with anxiolysis. She said she is planning to follow-up with her primary care doctor tomorrow anyway. I think this is a good idea to get further workup for what sounds like a worsening history of anxiety. Deafly do not think that she is a candidate for any sort of inpatient admission or inv oluntary committal. - Vital Signs Vital signs: Temp Pulse Resp BP Pulse Ox 98.6 F 103 H 20 130/84 H 100 06/21/18 17:40 06/21/18 17:40 06/21/18 17:40 06/21/18 17:40 06/21/18 17:40 - Laboratory Result Diagrams: 06/21/18 17:58 06/21/18 17:58 Laboratory results interpreted by me: 06/21/18 06/21/18 17:58 17:58 Seg Neutrophils % 79.9 H Glucose 113 H Calcium 10.5 H Discharge - Discharge Clinical Impression: Panic attacks Condition: Good Disposition: HOME, SELF-CARE Instructions: Anxiety ([facility]) Additional Instructions: Please follow-up with your primary care doctor tomorrow for further evaluation and treatment. If your panic or anxiety starts to make you feel worried about hurting herself or others, please call [phone] immediately or sy back to the emergency room so we can help you. Referrals: HUGO ACEVEDO MD [Primary Care Provider] - Follow up tomorrow
[2018-06-21 21:03] VITALS: BP 113/70
== END 2018-06-21 21:03 | disposition home or self-care (01) ==
LOC: ER 17:35
DX: F41.0 Panic disorder [episodic paroxysmal anxiety] (principal); R00.2 Palpitations; R06.02 Shortness of breath; Z87.891 Personal history of nicotine dependence
CPT/HCPCS: 36415; 80053; 80307; 81001; 81025; 84443; 85025; 99283

== ENCOUNTER 2019-04-03 22:13 | Emergency (ER) | payer OTHER ==
[2019-04-03 22:30] VITALS: BP 151/84
[2019-04-03 22:58] LABS: ABSOLUTE BASOPHILS # (AUTO) 0.1 10^3/uL (0.0-0.2); ABSOLUTE EOSINOPHILS # (AUTO) 0.2 10^3/uL (0.0-0.6); ABSOLUTE LYMPHOCYTES (AUTO) 2.2 10^3/uL (0.5-4.7); ABSOLUTE MONOCYTES (AUTO) 0.5 10^3/uL (0.1-1.4); ABSOLUTE NEUT (AUTO) 3.7 10^3/uL (1.7-8.2); EOSINOPHILS % (AUTO) 2.8 % (0-6); HEMATOCRIT 44.8 % (36.0-47.0); HEMOGLOBIN 15.5 g/dL (12.0-15.5); LYMPHOCYTES % (AUTO) 32.9 % (13-45); MEAN CORPUSCULAR HEMOGLOBIN 30.7 pg (27.0-33.4); MEAN CORPUSCULAR HGB CONC 34.5 g/dL (32.0-36.0); MEAN CORPUSCULAR VOLUME 89 fl (80-97); MONOCYTES % (AUTO) 7.3 % (3-13); PLATELET COUNT 207 10^3/uL (150-450); RED BLOOD COUNT 5.04 10^6/uL (3.72-5.28); RED CELL DISTRIBUTION WIDTH 12.9 % (11.5-14.0); TOTAL CELLS COUNTED % (AUTO) 100 %; WHITE BLOOD COUNT 6.7 10^3/uL (4.0-10.5)
[2019-04-03 23:18] LABS: ALBUMIN 4.8 g/dL (3.5-5.0); ALKALINE PHOSPHATASE 38 U/L (38-126); ANION GAP 12 (5-19); ASPARTATE AMINO TRANSFERASE 18 U/L (14-36); BILIRUBIN,DIRECT 0.1 mg/dL (0.0-0.4); BILIRUBIN,TOTAL 0.4 mg/dL (0.2-1.3); BLOOD UREA NITROGEN 12 mg/dL (7-20); CARBON DIOXIDE 27 mmol/L (22-30); CHLORIDE 103 mmol/L (98-107); GLUCOSE 126 mg/dL (75-110); TOTAL PROTEIN 7.9 g/dL (6.3-8.2)
[2019-04-03 23:20] LABS: APPEARANCE,URINE CLOUDY; BILIRUBIN,URINE NEGATIVE (NEGATIVE); COLOR,URINE YELLOW; GLUCOSE, URINE NEGATIVE (NEGATIVE); KETONES,URINE NEGATIVE (NEGATIVE); LEUKOCYTE ESTERASE,URINE NEGATIVE (NEGATIVE); NITRITE,URINE NEGATIVE (NEGATIVE); PROTEIN,URINE NEGATIVE (NEGATIVE); URINE SPECIFIC GRAVITY 1.019; UROBILINOGEN,URINE NEGATIVE mg/dL (<2.0)
== END 2019-04-04 02:06 | disposition left against medical advice (07) ==
LOC: ER 22:13
DX: Z53.21 Procedure and treatment not carried out due to patient leaving prior to being seen by health care provider (principal)
CPT/HCPCS: 36415; 80053; 81001; 83690; 85025